=== PATIENT | female | born 1990 | race Caucasian/White ===

== ENCOUNTER 2016-12-27 21:34 | Emergency (ER) | payer OTHER ==
[~2016-12-27] VITALS: Ht 170.2 cm; Wt 107.4 kg
[~2016-12-27 21:34] MED LIST: VENL25TA14 PO
[2016-12-27 21:36] VITALS: BP 119/75; PULSE 117; RESP 16; TEMP 98; O2SAT 100
[2016-12-27] MEDS ORDERED: VENL25TA PO (21:52)
[2016-12-27] MEDS ORDERED: VENL50TA PO (21:52)
[2016-12-27] MEDS ORDERED: AMPH1TAB29 PO (21:53)
[2016-12-27] MEDS ORDERED: IBUP-232 PO (21:58)
--- NOTE | 2016-12-27 22:08 | PD ---
HPI Chief Complaint: Skin Problem Time Seen by Provider: 21:58 Travel History International Travel<30 days: No Contact w/Intl Traveler<30days: No Traveled to known affect area: No History of Present Illness HPI 26-year-old female presents to the emergency room for evaluation of sunburn that she got earlier today. Patient laid out in the sun from 9 AM to 3 PM today without sunscreen. States she is [place]ri[place]. She did not wear sunscreen because "she doesn't believe in it." Patient got a slight headache earlier today for which she took 200 mg of ibuprofen. She has also been applying aloe with lidocaine gel and took a milk bath. Patient states nothing seems to be improving her symptoms. She does not have severe pain unless something touches her skin. Denies nausea, vomiting. No chronic medical conditions. PFSH Past Medical History Hx Anticoagulant Therapy: No Bipolar Disorder: Yes Diabetes: No Diminished Hearing: No Psychiatric: Yes (PTSD) Schizophrenia: Yes Tetanus Vaccination: < 5 Years Influenza Vaccination: No ?: Unknown LMP: 2 weeks ago Dilation and Curettage (D&C): Yes Tubal Ligation: Yes Social History Alcohol Use: No Tobacco Use: Yes (1 ppd ) Substance Use: No Allergies-Medications (Allergen,Severity, Reaction): Coded Allergies: No Known Allergies (Unverified , 12/27/16) Reported Meds & Prescriptions Reported Meds & Active Scripts Active Ibuprofen 600 Mg Tab 600 Mg PO Q8HR PRN Reported Adderall (Amphetamine-Dextroamphetamine) 5 Mg Tab 2 Mg PO DAILY Avoid late evening doses. Space doses at least 4 to 6 hours if more than once/day dosing. Effexor (Venlafaxine HCl) 25 Mg Tab 25 Mg PO HS Effexor (Venlafaxine HCl) 50 Mg Tab 50 Mg PO DAILY Review of Systems Except as stated in HPI: all other systems reviewed are Neg Physical Exam Narrative GENERAL: Well-nourished, well-developed female in no acute distress. Afebrile. Ambulatory. SKIN: Focused skin assessment warm/dry. Patient has first-degree sunburn of chest, upper arms, and legs. It is blanchable. No blisters. HEAD: Normocephalic. EYES: No scleral icterus. No injection or drainage. NECK: Supple, trachea midline. No JVD or lymphadenopathy. CARDIOVASCULAR: Regular rate and rhythm without murmurs, gallops, or rubs. RESPIRATORY: Breath sounds equal bilaterally. No accessory muscle use. PSYCHIATRIC: No delusional thought processes. No hallucinations. Data Data Last Documented VS Vital Signs Date Time Temp Pulse Resp B/P Pulse Ox O2 Delivery O2 Flow Rate FiO2 12/27/16 22:22 96 12/27/16 21:36 98.0 16 119/75 100 MDM Medical Decision Making Medical Screen Exam Complete: Yes Emergency Medical Condition: Yes Medical Record Reviewed: Yes Differential Diagnosis Sunburn, second degree sunburn, muscle spasm, dehydration Narrative Course 26-year-old female presents to the emergency room for evaluation of sunburn that she, after laying out from 9 AM to 3 PM without sunscreen. Patient denies nausea or vomiting. She is afebrile and well-appearing in the emergency room. Vital signs stable. No evidence of dehydration. She has first-degree sunburn on upper and lower extremities. Burn is blanchable and without blisters. Patient was told to continue [id number] aloe with lidocaine gel and take ibuprofen for pain. Told to follow up with the primary care physician or return for worsening symptoms. She understands and agrees to plan. Diagnosis Primary Impression: Sunburn of first degree Referrals: Primary Care Physician Patient Instructions: General Instructions, Sunburn (ED) Additional Instructions: Rest and drink plenty of fluids. Apply aloe as directed, as needed for pain. Take ibuprofen with food as directed, as needed for pain. Apply ice to the affected area for 20 minutes at a time, as needed for pain and swelling. Follow-up with a primary care physician. Return to the emergency room for worsening symptoms. Med/Other Pt SpecificInfo: Prescription(s) given Scripts Ibuprofen 600 Mg [id number] Mg PO Q8HR PRN (PAIN) #21 TAB Ref 0 Prov:Ofe Anderson MD 12/27/16 Disposition: 01 DISCHARGE HOME Condition: Stable Christy Lechuga Dec 27, 2016 22:08
[2016-12-27 22:22] VITALS: PULSE 96
== END 2016-12-27 22:22 | disposition home or self-care (01) ==
LOC: PHEFT 21:34
DX: L55.0 Sunburn of first degree (principal); R51 Headache; F17.200 Nicotine dependence, unspecified, uncomplicated; Z86.59 Personal history of other mental and behavioral disorders; X32.XXXA Exposure to sunlight, initial encounter
CPT/HCPCS: 99283

== ENCOUNTER 2017-03-23 13:58 | Emergency (ER) | payer OTHER ==
[~2017-03-23] VITALS: Ht 170.2 cm; Wt 109.0 kg
[~2017-03-23 13:58] MED LIST changes: +AMPH1TAB29 PO; +IBUP-232 PO; +VENL25TA PO; -VENL25TA14 PO; +VENL50TA PO
[2017-03-23 14:03] VITALS: BP 145/70; PULSE 103; RESP 20; TEMP 99.1; O2SAT 97
[2017-03-23] MEDS ORDERED: VENL75TA PO (14:09)
[2017-03-23] MEDS ORDERED: VENL37.5 PO (14:09)
--- NOTE | 2017-03-23 14:22 | PD ---
HPI Chief Complaint: Cold / Flu Symptoms Time Seen by Provider: 14:10 Travel History International Travel<30 days: No Contact w/Intl Traveler<30days: No Traveled to known affect area: No History of Present Illness HPI This is a 26-year-old female with history of asthma who presents for evaluation. For the past 3 days she has had a cough, congestion, low-grade fevers. The cough is productive with sputum. She reports that she has had a sore throat properly from the coughing. She reports a maximum temperature at home of 100. She reports that her daughters have had similar symptoms. Denies recent travel, abdominal pain, ear pain. She has no other complaints at this time. PFSH Past Medical History Hx Anticoagulant Therapy: No Bipolar Disorder: Yes Diabetes: No Diminished Hearing: No Psychiatric: Yes (PTSD) Schizophrenia: Yes ?: Not LMP: 03/12/17 Dilation and Curettage (D&C): Yes Tubal Ligation: Yes Social History Alcohol Use: No Tobacco Use: Yes (1 ppd ) Substance Use: No Allergies-Medications (Allergen,Severity, Reaction): Coded Allergies: No Known Allergies (Unverified , 03/23/17) Reported Meds & Prescriptions Reported Meds & Active Scripts Active Prednisone 20 Mg Tab 20 Mg PO BID 5 Days Proair Hfa 8.5 GM Inh (Albuterol Sulfate) 90 Mcg/Act Aer 2 Puff INH Q4-6H PRN 108 mcg/actuation Reported Effexor (Venlafaxine HCl) 75 Mg Tab 75 Mg PO DAILY Effexor (Venlafaxine HCl) 37.5 Mg Tab 37.5 Mg PO HS Review of Systems Except as stated in HPI: all other systems reviewed are Neg Physical Exam Narrative GENERAL: Well-developed well-nourished female in no acute distress SKIN: Warm and dry. HEAD: Atraumatic. Normocephalic. EYES: Pupils equal and round. No scleral icterus. No injection or drainage. ENT: No nasal bleeding or discharge. Mucous membranes pink and moist. No oropharyngeal erythema or exudate. Tympanic membranes appear normal. NECK: Trachea midline. No JVD. No lymphadenopathy. CARDIOVASCULAR: Regular rate and rhythm. No murmur appreciated. RESPIRATORY: No accessory muscle use. Mild wheezing. No crackles. GASTROINTESTINAL: Abdomen soft, non-tender, nondistended. Hepatic and splenic margins not palpable. MUSCULOSKELETAL: No obvious deformities. No clubbing. No cyanosis. No edema. NEUROLOGICAL: Awake and alert. No obvious cranial nerve deficits. Motor grossly within normal limits. Normal speech. PSYCHIATRIC: Appropriate mood and affect; insight and judgment normal. Data Data Last Documented VS Vital Signs Date Time Temp Pulse Resp B/P (MAP) Pulse Ox O2 Delivery O2 Flow Rate FiO2 03/23/17 14:03 99.1 103 20 145/70 (95) 97 Orders Orders Chest, Single Ap (03/23/17 14:19) Prednisone (Deltasone) (03/23/17 14:30) Albuterol-Ipratropium Neb (Duoneb Neb) (03/23/17 14:30) Influenzae A/B Antigen (03/23/17 14:19) [facility] Medical Decision Making Medical Screen Exam Complete: Yes Emergency Medical Condition: Yes Medical Record Reviewed: Yes Differential Diagnosis Asthma exacerbation, bronchitis, pneumonia, influenza, reactive airway disease, pharyngitis Narrative Course 26-year-old female history of asthma presents with 3 days of cough, congestion, low-grade fevers. On examination she has mild wheezing. Plan is for chest x- ray, influenza antigen. She will be given DuoNeb therapy and prednisone. Chest x-ray and influenza antigen test were both negative. The patient appears to have a viral bronchitis, asthma exacerbation. She is being discharged with albuterol inhaler and short course of prednisone. Diagnosis Primary Impression: Asthma exacerbation Additional Impression: Bronchitis Additional Instructions: Medication as prescribed. Avoid tobacco products. Follow-up with primary care physician and return for any emergent medical conditions. Med/Other Pt SpecificInfo: Prescription(s) given Scripts Prednisone (Prednisone) 20 Mg Tab 20 MG PO BID for 5 Days, #10 TAB 0 Refills Prov: Osmel Hernández MD 03/23/17 Albuterol 8.5 GM Inh (Proair Hfa 8.5 GM Inh) 90 Mcg/Act Aer 2 PUFF INH Q4-6H Y for SHORTNESS OF BREATH, #1 INHALER 0 Refills 108 mcg/actuation Prov: Osmel Hernández MD 03/23/17 Disposition: 01 DISCHARGE HOME Condition: Stable Rufino Abarca Mar 23, 2017 14:22
[2017-03-23] MEDS ORDERED: predniSONE 20 MG TAB PO ONE (14:30)
[2017-03-23] MEDS: RESP: ALBUTEROL 2.5 MG/IPRATROPIUM 0.5 MG NEB (SCH) INH (14:31)
--- NOTE | 2017-03-23 14:45 | RADRPT ---
EXAM DATE/TIME: 03/23/2017 14:24 [facility] COMPARISON: No previous studies available for comparison. INDICATIONS : Chest congestion, cough. MEDICAL HISTORY : None. SURGICAL HISTORY : None. ENCOUNTER: Initial ACUITY: 3 days PAIN SCORE: 1/10 LOCATION: Bilateral chest FINDINGS: A single view of the chest demonstrates the lungs to be symmetrically aerated without evidence of mas s, infiltrate or effusion. The cardiomediastinal contours are unremarkable. Osseous structures are intact. CONCLUSION: No acute disease. Jose Antonio Segovia MD FACR on March 23, 2017 at 14:43 Board Certified Radiologist. This report was verified electronically.
[2017-03-23] MEDS ORDERED: PRED20 PO (14:49)
[2017-03-23] MEDS ORDERED: ALBUAER3 INH (14:49)
== END 2017-03-23 15:06 | disposition home or self-care (01) ==
LOC: PHEFT 13:58
DX: J45.901 Unspecified asthma with (acute) exacerbation (principal); J40 Bronchitis, not specified as acute or chronic
CPT/HCPCS: 71010; 87804; 94640; 94664; 99284; J7512

== ENCOUNTER 2017-05-17 17:37 | Emergency (ER) | payer OTHER ==
[~2017-05-17] VITALS: Ht 172.7 cm; Wt 104.0 kg
[~2017-05-17 17:37] MED LIST changes: +ALBUAER3 INH; -AMPH1TAB29 PO; -IBUP-232 PO; +PRED20 PO; -VENL25TA PO; +VENL37.5 PO; -VENL50TA PO; +VENL75TA PO
[2017-05-17 17:38] VITALS: BP 135/83; PULSE 95; RESP 16; TEMP 98.3; O2SAT 98
[2017-05-17] MEDS ORDERED: RISP1TAB2 PO (17:43)
[2017-05-17] MEDS ORDERED: IBUP1TAB7 PO (17:56)
--- NOTE | 2017-05-17 17:57 | PD ---
HPI Chief Complaint: Musculoskeletal Complaint Time Seen by Provider: 17:20 Travel History International Travel<30 days: No Contact w/Intl Traveler<30days: No Traveled to known affect area: No History of Present Illness HPI 26 YEAR old female with left knee pain status post twisting injury 2 weeks ago. It became painful after standing on it for prolonged period of time today prompting her visit. His pain to the lateral aspect of the knee. She denies joint or leg swelling. No fever or chills. Symptoms severity mild. No alleviating factors. PFSH Past Medical History Hx Anticoagulant Therapy: No Bipolar Disorder: Yes Diabetes: No Diminished Hearing: No Psychiatric: Yes (PTSD) Schizophrenia: Yes ?: Not Dilation and Curettage (D&C): Yes Tubal Ligation: Yes Social History Alcohol Use: No Tobacco Use: Yes (1 ppd ) Substance Use: No Allergies-Medications (Allergen,Severity, Reaction): Coded Allergies: No Known Allergies (Unverified Adverse Reaction, Unknown, 05/17/17) Reported Meds & Prescriptions Reported Meds & Active Scripts Active Ibuprofen 800 Mg Tab 800 Mg PO Q6HR PRN Proair Hfa 8.5 GM Inh (Albuterol Sulfate) 90 Mcg/Act Aer 2 Puff INH Q4-6H PRN 108 mcg/actuation Reported Risperidone 1 Mg Tab 1 Mg PO HS Effexor (Venlafaxine HCl) 75 Mg Tab 75 Mg PO DAILY Effexor (Venlafaxine HCl) 37.5 Mg Tab 37.5 Mg PO HS Review of Systems Except as stated in HPI: all other systems reviewed are Neg Physical Exam Narrative GENERAL: Alert, well-appearing female no acute distress SKIN: Warm and dry. HEAD: Normocephalic. EYES: No scleral icterus. No injection or drainage. NECK: Supple, trachea midline. No JVD or lymphadenopathy. MUSCULOSKELETAL: No cyanosis, or edema. Attention to the left lower extremity: Mild tenderness to the lateral aspect of the knee. Joint is stable. No joint effusion. Patient has limited flexion due to pain. 2+ distal pulses. Brisk cap refill. Data Data Last Documented VS Orders Orders Splint Or Brace Apply/Monitor (05/17/17 17:57) MDM Medical Decision Making Medical Screen Exam Complete: Yes Emergency Medical Condition: Yes Differential Diagnosis Knee sprain, contusion, fracture Narrative Course 26 YEAR old female with left knee pain status post twisting injury 2 weeks ago. It became painful after standing on it for prolonged period of time today prompting her visit. She is mild tenderness to the lateral aspect. No bony point tenderness. Patient be treated for knee sprain Diagnosis Primary Impression: Knee sprain Qualified Codes: S83.92XA - Sprain of unspecified site of left knee, initial encounter Referrals: Primary Care Physician Scripts Ibuprofen (Ibuprofen) 800 Mg Tab 800 MG PO Q6HR Y for PAIN, #40 TAB 0 Refills Prov: Lin Barr 05/17/17 Disposition: 01 DISCHARGE HOME Condition: Stable Lin Barr May 17, 2017 17:57
== END 2017-05-17 18:22 | disposition home or self-care (01) ==
LOC: PHEFT 17:37
DX: S83.92XA Sprain of unspecified site of left knee, initial encounter (principal); X50.1XXA Overexertion from prolonged static or awkward postures, initial encounter
CPT/HCPCS: 99282; E0113

== ENCOUNTER 2017-07-12 19:01 | Emergency (ER) | payer OTHER ==
[~2017-07-12] VITALS: Ht 172.7 cm; Wt 116.3 kg
[~2017-07-12 19:01] MED LIST changes: +IBUP1TAB7 PO; -PRED20 PO; +RISP1TAB2 PO
[2017-07-12 19:16] VITALS: BP 129/75; PULSE 95; RESP 20; TEMP 98.1
--- NOTE | 2017-07-12 19:44 | PD ---
HPI Chief Complaint: Cold / Flu Symptoms Time Seen by Provider: 19:37 Travel History International Travel<30 days: No Contact w/Intl Traveler<30days: No Traveled to known affect area: No History of Present Illness HPI 26-year-old female presents with congestion, facial pressure, scratchy throat. Symptoms started yesterday. Associated fever of 101. She has not tried using any [id number] medications for symptom relief. She reports multiple sick contacts at work. She has no other complaints at this time. PFS Past Medical History Hx Anticoagulant Therapy: No Bipolar Disorder: Yes Diabetes: No Diminished Hearing: No Psychiatric: Yes (PTSD) Schizophrenia: Yes Tetanus Vaccination: Unknown Influenza Vaccination: No ?: Not LMP: 06/18/2017 Dilation and Curettage (D&C): Yes Tubal Ligation: Yes Social History Alcohol Use: No Tobacco Use: Yes (1 ppd ) Substance Use: No Allergies-Medications (Allergen,Severity, Reaction): Coded Allergies: No Known Allergies (Unverified Adverse Reaction, Unknown, 07/12/17) Reported Meds & Prescriptions Reported Meds & Active Scripts Active Flonase Nasal Weston (Fluticasone Nasal Weston) 50 Mcg/Act Weston 100 Mcg EACH NARE BID Reported Risperidone 1 Mg Tab 1 Mg PO HS Effexor (Venlafaxine HCl) 75 Mg Tab 75 Mg PO DAILY Effexor (Venlafaxine HCl) 37.5 Mg Tab 37.5 Mg PO HS Review of Systems Except as stated in HPI: all other systems reviewed are Neg Physical Exam Narrative GENERAL: Well-nourished female in no acute distress SKIN: Warm and dry. HEAD: Atraumatic. Normocephalic. EYES: Pupils equal and round. No scleral icterus. No injection or drainage. ENT: No nasal bleeding or discharge. Mucous membranes pink and moist. NECK: Trachea midline. No JVD. CARDIOVASCULAR: Regular rate and rhythm. No murmur appreciated. RESPIRATORY: No accessory muscle use. Clear to auscultation. Breath sounds equal bilaterally. Data Data Last Documented VS Vital Signs Date Time Temp Pulse Resp B/P (MAP) Pulse Ox O2 Delivery O2 Flow Rate FiO2 07/12/17 19:16 98.1 95 20 129/75 (93) Orders Orders Influenzae A/B Antigen (07/12/17 19:39) Ed Discharge Order (07/12/17 20:00) MDM Medical Decision Making Medical Screen Exam Complete: Yes Emergency Medical Condition: Yes Medical Record Reviewed: Yes Differential Diagnosis Rhinitis, sinusitis, bronchitis, pneumonia, influenza, pharyngitis Narrative Course 26-year-old female presents with 1 day of congestion, sinus pressure, fevers at home. She appears well. Lungs are clear to auscultation. Influenza antigen test was performed and is negative. I suspect she has a viral syndrome. She will be discharged with Flonase for symptom treatment. Diagnosis Primary Impression: Upper respiratory infection Departure Forms: Tests/Procedures, Work Release Enter return to work date: Jul 16, 2017 Additional Instructions: Medication as prescribed. Stay well hydrated well-nourished, get plenty of rest. Tylenol or Motrin for fevers. Return for any acutely new or worsening symptoms. Med/Other Pt SpecificInfo: Prescription(s) given Scripts Fluticasone Nasal Weston (Flonase Nasal Weston) 50 Mcg/Act [place]on 100 MCG EACH NARE BID for Allergies, #1 BOTTLE 0 Refills Prov: Henrique Mejia MD 07/12/17 Disposition: 01 DISCHARGE HOME Condition: Stable Rufino Abarca Jul 12, 2017 19:44
[2017-07-12] MEDS ORDERED: FLUT1SPR5 EACH NARE (20:00)
== END 2017-07-12 20:14 | disposition home or self-care (01) ==
LOC: PHEFT 19:01
DX: J06.9 Acute upper respiratory infection, unspecified (principal); F31.9 Bipolar disorder, unspecified; F20.9 Schizophrenia, unspecified; F17.200 Nicotine dependence, unspecified, uncomplicated
CPT/HCPCS: 87804; 99283